=== PATIENT | male | born 1975 | race Caucasian/White ===

== ENCOUNTER 2018-12-05 08:52 | Emergency (ER) | payer MEDICAID ==
[~2018-12-05] VITALS: Ht 182.9 cm; Wt 108.9 kg
[2018-12-05 09:00] VITALS: Ht 182.9 cm; Wt 108.9 kg
[2018-12-05 10:42] VITALS: BP 132/84
== END 2018-12-05 10:43 | disposition home or self-care (01) ==
LOC: ED 08:52
DX: S39.012A Strain of muscle, fascia and tendon of lower back, initial encounter (principal); M51.37 Other intervertebral disc degeneration, lumbosacral region; X50.0XXA Overexertion from strenuous movement or load, initial encounter; Y93.89 Activity, other specified; Y92.89 Other specified places as the place of occurrence of the external cause; Y99.0 Civilian activity done for income or pay
CPT/HCPCS: J1885